=== PATIENT | female | born 2000 | race Caucasian/White ===

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

== ENCOUNTER 2019-05-28 21:41 | Emergency (ER) | payer OTHER ==
[2019-05-28] MEDS ORDERED: diPHENhydraMINE IV* 50 MG/ML 1 ml VIAL (BENADRYL) IV ONE (23:37)
[2019-05-28] MEDS ORDERED: PROCHLORPERAZINE INJ 5 MG/ML 2 ML VIAL IV ONE (23:38)
[2019-05-28] MEDS ORDERED: Ketorolac INJ* 30 MG/ML 1 ML VIAL IV PUSH ONE (23:38)
[2019-05-28] MEDS ORDERED: NS 0.9% 1000 ML** 1,000 ML IV ONE (23:38)
[2019-05-28 23:52] LABS: ABS Eosinophils 0.1 10^3/ul (0-0.6); ABS Lymphocytes 2.2 10^3/ul (1.0-4.8); ABS Monocytes 0.8 10^3/ul (0-0.8); Eosinophil % 0.8 %; Hematocrit 40 % (35-47); Hemoglobin 14.1 g/dL (12.0-16.0); Lymphocyte % 19.9 %; Mean Corpuscular HGB Conc 35 g/dL (31-36); Mean Corpuscular Hemoglobin 30 pg (27-31); Mean Corpuscular Volume 84 fL (80-97); Mean Platelet Volume 7.5 fL (7.4-10.4); Platelet Count 335 10^3/uL (150-450); Red Blood Count 4.77 10^6 /uL (3.70-4.87); Red Cell Distribution Width 13 % (10-15); White Blood Count 11.2 10^3/uL (3.5-10.8)
[2019-05-28 23:59] LABS: INR 0.93 (0.82-1.09)
--- NOTE | 2019-05-29 00:06 | ED ---
Seizure - HPI Summary HPI Summary: 18 year old female presents with headache after seizures today. She states that has history of seizure and had one this p.m. Patient has not had a seizure in a couple years. She was driving back today and had a seizure. She denies her head injury. No other injury. She took ibuprofen without relief. She states she is nauseous and photophobic. No fevers. No neck stiffness. States she gets headaches with her seizures. She hasn't missed a dose of her medication. Her neurologist is Dr. Zuniga. - History Of Current Complaint Chief Complaint: EDSeizure Time Seen by Provider: 05/28/19 23:25 - Allergies/Home Medications Allergies/Adverse Reactions: Allergies Allergy/AdvReac Type Severity Reaction Status Date / Time No Known Allergies Allergy Verified 05/28/19 23:31 PMH/Surg Hx/FS Hx/Imm Hx Endocrine/Hematology History: Denies: Hx Anticoagulant Therapy, Hx Diabetes, Hx Thyroid Disease Cardiovascular History: Denies: Hx Congestive Heart Failure, Hx Hypertension, Hx Pacemaker/ICD, Other Cardiovascular Problems/Disorders Respiratory History: Reports: Hx Asthma - A CHILD Denies: Hx Chronic Obstructive Pulmonary Disease (COPD), Hx Lung Cancer, Other Respiratory Problems/Disorders GI History: Denies: Hx Gall Bladder Disease, Hx Gastrointestinal Bleed, Hx Ulcer, Hx Urosepsis History: Denies: Hx Kidney Stones, Hx Renal Disease Sensory History: Denies: Hx Hearing Aid Neurological History: Reports: Hx Migraine, Hx Seizures Denies: Hx Dementia, Hx Transient Ischemic Attacks (TIA) Psychiatric History: Reports: Hx Depression Denies: Hx Anxiety, Hx Panic Disorder, Hx Schizophrenia, Hx Bipolar Disorder Infectious Disease History: No Infectious Disease History: Denies: Hx Hepatitis, Hx Human Immunodeficiency Virus (HIV), History Other Infectious Disease, Traveled Outside the [place] in Last 30 Days - Family History Known Family History: Positive: None, Hypertension, Other - strong FHx of gallstones and kidney stones Family History: Father with WPW, mother with thyroid and history of migraines when she was younger. - Social History Alcohol Use: None Substance Use Type: Reports: None Hx Tobacco Use: No Smoking Status (MU): Never Smoked Tobacco Review of Systems Negative: Fever Negative: Chest Pain Negative: Shortness Of Breath Neurological: Other - seizure Positive: Headache All Other Systems Reviewed And Are Negative: Yes Physical Exam Triage Information Reviewed: Yes Vital Signs On Initial Exam: Initial Vitals Temp Pulse Resp BP Pulse Ox 98.2 F 70 16 142/85 98 05/28/19 21:45 05/28/19 21:45 05/28/19 21:45 05/28/19 21:45 05/28/19 21:45 Vital Signs Reviewed: Yes Appearance: Positive: Well-Appearing Skin: Positive: Warm, Dry Head/Face: Positive: Normal Head/Face Inspection Eyes: Positive: Normal, Conjunctiva Clear ENT: Positive: Pharynx normal Respiratory/Lung Sounds: Positive: Clear to Auscultation, Breath Sounds Present Cardiovascular: Positive: Normal, RRR Abdomen Description: Positive: Nontender, Soft Bowel Sounds: Positive: Present Musculoskeletal: Positive: Normal Neurological: Positive: Sensory/Motor Intact, Alert, Oriented to Person Place, Time, CN Intact II-III Psychiatric: Positive: Normal Diagnostics - Vital Signs Vital Signs Temp Pulse Resp BP Pulse Ox 05/28/19 21:45 98.2 F 70 16 142/85 98 - Laboratory Lab Results: Lab Results 05/28/19 05/28/19 Range/Units 23:45 23:45 WBC 11.2 H (3.5-10.8) 10^3/uL RBC 4.77 (3.70-4.87) 10^6 /uL Hgb 14.1 (12.0-16.0) g/dL Hct 40 (35-47) % MCV 84 (80-97) fL MCH 30 (27-31) pg MCHC 35 (31-36) g/dL RDW 13 (10-15) % Plt Count 335 (150-450) 10^3/uL MPV 7.5 (7.4-10.4) fL Neut % (Auto) 71.9 % Lymph % (Auto) 19.9 % [place] % (Auto) 7.0 % Eos % (Auto) 0.8 % Baso % (Auto) 0.4 % Absolute Neuts (auto) 8.0 H (1.5-7.7) 10^3/ul Absolute Lymphs (auto) 2.2 (1.0-4.8) 10^3/ul Absolute Monos (auto) 0.8 (0-0.8) 10^3/ul Absolute Eos (auto) 0.1 (0-0.6) 10^3/ul Absolute Basos (auto) 0.0 (0-0.2) 10^3/ul Absolute Nucleated RBC 0.0 10^3/ul Nucleated RBC % 0.0 INR (Anticoag Therapy) 0.93 (0.82-1.09) Result Diagrams: 05/28/19 23:45 05/28/19 23:45 Lab Statement: Any lab studies that have been ordered have been reviewed, and results considered in the medical decision making process. Re-Evaluation - Re-Evaluation First Eval Comment: feeling jittery Second Eval Re-Evaluation Time: 01:24 Change: Improved Comment: feel asleep Course/Dx - Course Course Of Treatment: 18 year old female presents with headache after seizures today. She states that has history of seizure and had one this p.m. Patient has not had a seizure in a couple years. She was driving back today and had a seizure. She denies her head injury. No other injury. She took ibuprofen without relief. She states she is nauseous and photophobic. No fevers. No neck stiffness. States she gets headaches with her seizures. She hasn't missed a dose of her medication. Her neurologist is Dr. Zuniga. On exam is neurovascularly intact. Cranial nerves intact. Labs without significant abnormality. Gave Compazine Benadryl and Toradol and was feeling better but started developing twitches felt like and anxious probably due to compazine. Gave dosed Ativan and patient feel asleep. Headache is resolved. Told to follow up with neurology. Patient understands agrees plan. - Diagnoses Differential Diagnosis/HQI/PQRI: Positive: Metabolic Disorder, Known Seizure Disorder, Other - migraine Provider Diagnoses: Seizure, Headache Discharge - Sign-Out/Discharge Documenting (check all that apply): Patient Departure Patient Received Moderate/Deep Sedation with Procedure: No - Discharge Plan Condition: Good Disposition: HOME Patient Education Materials: Epilepsy (ED) Referrals: Chapo Jacobs MD [Primary Care Provider] - Jesús Zuniga MD [Medical Doctor] - Additional Instructions: take tyenlol or ibuprofen every 6 hours as needed for pain Follow up with neurology Return to ED if develop any new or worsening symptoms - Billing Disposition and Condition Condition: GOOD Disposition: Home
[2019-05-29 00:10] LABS: Albumin/Globulin Ratio 1.5 (1-3); Calcium 8.9 mg/dL (8.6-10.3); EGFR African American 147.3 (>60); EGFR Non-African American 121.7 (>60); Globulin 2.6 g/dL (2-4); Magnesium 1.9 mg/dL (1.9-2.7); Total Bilirubin 0.3 mg/dL (0.2-1.0); Total Protein 6.6 g/dL (6.4-8.9)
[2019-05-29] MEDS ORDERED: LORazepam INJ* 2 MG/ML 1 ML VIAL IV PUSH ONE (00:16)
[2019-05-29] MEDS ORDERED: Lorazepam PYXIS KEY PRN (00:16)
[2019-05-29 00:20] LABS: Carbamazepine 7.7 mcg/mL (4.0-12.0)
[2019-05-29 01:36] VITALS: BP 126/78
== END 2019-05-29 01:35 | disposition home or self-care (01) ==
LOC: ED 21:41
DX: G40.909 Epilepsy, unspecified, not intractable, without status epilepticus (principal); R51 Headache
CPT/HCPCS: 36415; 80053; 80156; 83605; 83735; 85025; 85610; 96374; 96375; 99282; J0780; J1200; J1885; J2060

== ENCOUNTER 2019-08-03 21:47 | Emergency (ER) | payer OTHER ==
--- NOTE | 2019-08-03 23:51 | ED ---
Respiratory - HPI Summary HPI Summary: 19 yo female presents to [facility] with cold symptoms. She tells me that 2 days ago she developed sinus pain/pressure/congestion with a sore throat and dry cough. Today her cough is much worse and she feels that she is wheezing. She has coughed "all day" and has a headache from coughing. She has not taken anything OTC for her symptoms. Denies fever, chills, SOB, chest pain, abdominal pain, n/v. No chance of today. Pt states hx of asthma as a child - History of Current Complaint Chief Complaint: EDUpperRespComplaint Stated Complaint: COLD PER PT Time Seen by Provider: 08/03/19 23:51 Hx Obtained From: Patient Onset/Duration: Gradual Onset Initial Severity: Mild Current Severity: Mild Pain Intensity: 4 - Allergy/Home Medications Allergies/Adverse Reactions: Allergies Allergy/AdvReac Type Severity Reaction Status Date / Time No Known Allergies Allergy Verified 08/03/19 21:52 PMH/Surg Hx/FS Hx/Imm Hx Endocrine/Hematology History: Denies: Hx Anticoagulant Therapy, Hx Diabetes, Hx Thyroid Disease Cardiovascular History: Denies: Hx Congestive Heart Failure, Hx Hypertension, Hx Pacemaker/ICD, Other Cardiovascular Problems/Disorders Respiratory History: Reports: Hx Asthma - A CHILD Denies: Hx Chronic Obstructive Pulmonary Disease (COPD), Hx Lung Cancer, Other Respiratory Problems/Disorders GI History: Denies: Hx Gall Bladder Disease, Hx Gastrointestinal Bleed, Hx Ulcer, Hx Urosepsis History: Denies: Hx Kidney Stones, Hx Renal Disease Sensory History: Denies: Hx Hearing Aid Neurological History: Reports: Hx Migraine, Hx Seizures Denies: Hx Dementia, Hx Transient Ischemic Attacks (TIA) Psychiatric History: Reports: Hx Depression Denies: Hx Anxiety, Hx Panic Disorder, Hx Schizophrenia, Hx Bipolar Disorder Infectious Disease History: No Infectious Disease History: Denies: Hx Hepatitis, Hx Human Immunodeficiency Virus (HIV), History Other Infectious Disease, Traveled Outside the [place] in Last 30 Days - Family History Known Family History: Positive: None, Hypertension, Other - strong FHx of gallstones and kidney stones Family History: Father with WPW, mother with thyroid and history of migraines when she was younger. - Social History Alcohol Use: None Substance Use Type: Reports: None Hx Tobacco Use: No Smoking Status (MU): Never Smoked Tobacco Review of Systems Constitutional: Negative Eyes: Negative Positive: Nasal Discharge Cardiovascular: Negative Positive: Cough Gastrointestinal: Negative Skin: Negative Positive: Headache Psychological: Normal All Other Systems Reviewed And Are Negative: No Physical Exam - Summary Physical Exam Summary: GENERAL: NAD. WDWN. No pain distress. SKIN: No rashes, sores, lesions, or open wounds. HEENT: Head: AT/NC Eyes: Conjunctiva clear without inflammation or discharge. Ears: Hearing grossly normal. TMs intact, no bulging, erythema, or edema. Nose: Nasal mucosa pink and moist. NTTP maxillary and frontal sinus. Throat: Posterior oropharynx without exudates, erythema, or tonsillar enlargement. Uvula midline. NECK: Supple. Nontender. No lymphadenopathy. CHEST: Mild wheezing throughout. No r/r. No accessory muscle use. Breathing comfortably and in no distress. CV: RRR. Without m/r/g. Pulses intact. Cap refill <2seconds NEURO: Alert. PSYCH: Age appropriate behavior. Triage Information Reviewed: Yes Vital Signs On Initial Exam: Initial Vitals Temp Pulse Resp BP Pulse Ox 97.2 F 95 16 118/97 97 08/03/19 21:50 08/03/19 21:50 08/03/19 21:50 08/03/19 21:50 08/03/19 21:50 Vital Signs Reviewed: Yes Diagnostics - Vital Signs Vital Signs Temp Pulse Resp BP Pulse Ox 08/03/19 21:50 97.2 F 95 16 118/97 97 - Laboratory Lab Statement: Any lab studies that have been ordered have been reviewed, and results considered in the medical decision making process. Disposition - Course Course Of Treatment: Suspect bronchitis. In the ED pt was given a duoneb treatment with good relief. She was given a first dose of zpak as well as ibuprofen. - Diagnoses Provider Diagnoses: Bronchitis Discharge ED - Sign-Out/Discharge Documenting (check all that apply): Patient Departure Patient Received Moderate/Deep Sedation with Procedure: No - Discharge Plan Condition: Stable Disposition: HOME Prescriptions: Albuterol HFA INHALER* [Ventolin HFA Inhaler*] 1 puff INH Q6H PRN #1 mdi PRN Reason: Sob/Wheezing Azithromycin TAB* [Zithromax TAB (Z-SCARLETT) 250 mg #6 tabs] 2 tab PO .TODAY, THEN 1 DAILY #1 scarlett predniSONE TAB* [Deltasone 20 MG TAB*] 40 mg PO DAILY #10 tab Patient Education Materials: Acute Bronchitis (ED) Forms: *Work Release Referrals: Chapo Jacobs MD [Primary Care Provider] - Additional Instructions: If you develop a fever, shortness of breath, chest pain, new or worsening symptoms - please call your PCP or go to the ED immediately. - Billing Disposition and Condition Condition: STABLE Disposition: Home
[2019-08-04] MEDS ORDERED: Azithromycin TAB* 250 MG PO ONE
[2019-08-04] MEDS ORDERED: Ibuprofen TAB* 600 MG PO ONE
[2019-08-04] MEDS ORDERED: Albuterol/Ipratropium NEB.SOL* Albuterol 2.5 MG/Ipratropium 0.5 MG 3 ML INH ONE (00:01)
[2019-08-04 00:42] VITALS: BP 137/72
== END 2019-08-04 00:41 | disposition home or self-care (01) ==
LOC: EDSEX → ED 21:47
DX: J40 Bronchitis, not specified as acute or chronic (principal); Z79.899 Other long term (current) drug therapy
CPT/HCPCS: 99283; A9270-GY

== ENCOUNTER 2019-08-28 20:35 | Emergency (ER) | payer OTHER ==
--- OUTSIDE RECORDS SUMMARY | 2019-08-28 21:03 | XMS REPORT | Continuity of Care Document ---
:2000 External Reference #:[id number] Author Name Homer Sherman CNM Address [address] [place] [address] Care Team Providers Name Role Phone Chapo Jacobs MD Care Team Information Banking Analyst [phone] Problems Active Problems Provider Date Vulval hyperplasia Naeem Daily M.D. 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 Allergies, Adverse Reactions, Alerts Description No Known Drug Allergies Medications Active Medications SIG Qnty Indications Ordering Provider Date Carbamazepine ER 2 tabs every am Unknown 200mg Caps ER 12HR Kyleena Unknown Carbamazepine ER 3 tabs QHS Unknown 200mg Caps ER 12HR Fluoxetine HCL 1 by mouth Unknown 20mg Capsules every day Medications Administered in Office Medication SIG Qnty Indications Ordering Provider Date PT SCRN Tbco Id as Non User Homer Sherman CNM 08/22/2019 Injection PT SCRN Tbco Id as Non User Karen Srinivasan MD 08/09/2018 Injection PT SCRN Tbco Id as Non User Karen Srinivasan MD 05/16/2018 Injection Immunizations Description No Information Available Vital Signs Date Vital Result Comment 08/22/2019 7:58am BP Systolic 118 mmHg BP Diastolic 78 mmHg Height 63.5 inches 5'3.50" Weight 219.00 lb BMI (Body Mass Index) 38.2 kg/m2 Last Menstrual Period [id number] 0 Parity 0 08/09/2018 2:44pm BP Systolic 122 mmHg BP Diastolic 66 mmHg Height 63.5 inches 5'3.50" Weight 212.00 lb BMI (Body Mass Index) 37.0 kg/m2 Last Menstrual Period [id number] 0 Results Description No Information Available Procedures Description No Information Available Medical Devices Description No Information Available Encounters Type Date Location Provider Dx Diagnosis Office Visit 08/22/2019 [facility] Homer Sherman CNM N39.0 Urinary tract 8:00a infection, site not specified T19.2xxA Foreign body in vulva and vagina, initial encounter Z11.3 Encntr screen for infections w sexl mode of transmiss Assessments Date Code Description Provider 08/22/2019 N39.0 Urinary tract infection, site not specified Homer Sherman CNM 08/22/2019 T19.2xxA Foreign body in vulva and vagina, initial Homer Sherman CNM encounter 08/22/2019 Z11.3 Encounter for screening for infections with a Homer Sherman CNM predominantly sexual mode of transmission Plan of Treatment 08/22/2019 - ALIZA HeltonMN39.0 Urinary tract infection, site not specifiedComments:We will follow up based on result and consider treatment.T19.2xxA Foreign body in vulva and vagina, initial encounterComments: This item might account for your discomfort.Z11.3 Encounter for screening for infections with a predominantly sexual mode of transmission Functional Status Description No Information Available Mental Status Description No Information Available Referrals Description No Information Available
[2019-08-28] MEDS ORDERED: Ketorolac INJ* 30 MG/ML 1 ML VIAL IM ONE (21:52)
[2019-08-28] MEDS ORDERED: Diazepam TAB(*) 5 MG PO ONE (21:52)
--- NOTE | 2019-08-28 21:53 | ED ---
Back Pain - HPI Summary HPI Summary: Patient complains of left mid back pain starting at 5pm today when she was lifting something. Pain described as constant, sharp, stabbing. Denies any other pain, injury or symptoms. Medical history is seizures. - History of Current Complaint Chief Complaint: EDBackInjuryPain Stated Complaint: BACK PAIN PER PT Time Seen by Provider: 08/28/19 21:28 Hx Obtained From: Patient Hx Last Menstrual Period: 09/22/18 Onset/Duration: Sudden Onset, Lasting Hours Onset/Duration: Started Hours Ago Timing: Constant Back Pain Location: Is Discrete @ Severity Initially: Severe Severity Currently: Severe Pain Intensity: 10 Pain Scale Used: 0-10 Numeric Character: Sharp Aggravating Symptom(s): Movement, Lifting, Bending Alleviating Symptom(s): Rest, Position Associated Signs And Symptoms: Positive: Negative - Allergies/Home Medications Allergies/Adverse Reactions: Allergies Allergy/AdvReac Type Severity Reaction Status Date / Time No Known Allergies Allergy Verified 08/28/19 20:57 PMH/Surg Hx/FS Hx/Imm Hx Endocrine/Hematology History: Denies: Hx Anticoagulant Therapy, Hx Diabetes, Hx Thyroid Disease Cardiovascular History: Denies: Hx Congestive Heart Failure, Hx Hypertension, Hx Pacemaker/ICD, Other Cardiovascular Problems/Disorders Respiratory History: Reports: Hx Asthma - A CHILD Denies: Hx Chronic Obstructive Pulmonary Disease (COPD), Hx Lung Cancer, Other Respiratory Problems/Disorders GI History: Denies: Hx Gall Bladder Disease, Hx Gastrointestinal Bleed, Hx Ulcer, Hx Urosepsis History: Denies: Hx Kidney Stones, Hx Renal Disease Sensory History: Denies: Hx Legally Blind, Hx Hearing Aid Opthamlomology History: Denies: Hx Eye Prosthesis EENT History: Denies: Hx Deafness Neurological History: Reports: Hx Migraine, Hx Seizures Denies: Hx Dementia, Hx Transient Ischemic Attacks (TIA) Psychiatric History: Reports: Hx Depression Denies: Hx Anxiety, Hx Panic Disorder, Hx Schizophrenia, Hx Bipolar Disorder Infectious Disease History: No Infectious Disease History: Denies: Hx Hepatitis, Hx Human Immunodeficiency Virus (HIV), History Other Infectious Disease, Traveled Outside the [place] in Last 30 Days - Family History Known Family History: Positive: None, Hypertension, Other - strong FHx of gallstones and kidney stones Family History: Father with WPW, mother with thyroid and history of migraines when she was younger. - Social History Alcohol Use: None Substance Use Type: Reports: Marijuana Hx Tobacco Use: No Smoking Status (MU): Never Smoked Tobacco Review of Systems Constitutional: Negative Eyes: Negative ENT: Negative Cardiovascular: Negative Respiratory: Negative Gastrointestinal: Negative Genitourinary: Negative Musculoskeletal: Other Skin: Negative Neurological: Negative Psychological: Normal All Other Systems Reviewed And Are Negative: Yes Physical Exam - Summary Physical Exam Summary: Pain with palpation of paraspinal muscles of thoracic spine on left side. No ecchymosis, erythema, deformity, swelling noted to back. PMS intact distally in left upper extremity. Triage Information Reviewed: Yes Vital Signs On Initial Exam: Initial Vitals Temp Pulse Resp BP Pulse Ox 98.5 F 72 16 141/95 97 08/28/19 20:56 08/28/19 20:56 08/28/19 20:56 08/28/19 20:56 08/28/19 20:56 Vital Signs Reviewed: Yes Appearance: Positive: Well-Appearing Skin: Positive: Warm Head/Face: Positive: Normal Head/Face Inspection Eyes: Positive: Normal Neck: Positive: Supple Respiratory/Lung Sounds: Positive: Clear to Auscultation Cardiovascular: Positive: Normal Abdomen Description: Positive: Nontender Musculoskeletal: Positive: Normal Neurological: Positive: Normal Psychiatric: Positive: Normal AVPU Assessment: Alert - Darcie Coma Scale Best Eye Response: 4 - Spontaneous Best Motor Response: 6 - Obeys Commands Best Verbal Response: 5 - Oriented Coma Scale Total: 15 Procedures - Sedation Patient Received Moderate/Deep Sedation with Procedure: No Diagnostics - Vital Signs Vital Signs Temp Pulse Resp BP Pulse Ox 08/28/19 20:56 98.5 F 72 16 141/95 97 - Laboratory Lab Statement: Any lab studies that have been ordered have been reviewed, and results considered in the medical decision making process. Back Pain Course/Dx - Course Course Of Treatment: Patient complains of left mid back pain starting at 5pm today when she was lifting something. Pain described as constant, sharp, stabbing. Denies any other pain, injury or symptoms. Medical history is seizures. Vital signs within normal limits. Labs unremarkable. Patient improved with Valium 5 mg by mouth, lidocaine patch, Toradol 30 mg IM. UA possible UTI. Cultures pending. Rx for Flexeril, and Bactrim. - Diagnoses Provider Diagnoses: Back pain, UTI (urinary tract infection) Discharge ED - Sign-Out/Discharge Documenting (check all that apply): Patient Departure - Discharge Plan Condition: Stable Disposition: HOME Prescriptions: Cyclobenzaprine TAB* [Flexeril 10 MG TAB*] 10 mg PO TID PRN 4 Days #12 tab PRN Reason: Spasms Sulfamethox/Trimethoprim DS* [Bactrim DS 800/160 TAB*] 1 tab PO BID 10 Days #20 tab Patient Education Materials: Urinary Tract Infection in Women (ED), Muscle Spasm (ED) Referrals: Chapo Jacobs MD [Primary Care Provider] - Additional Instructions: Take Bactrim twice a day for UTI. Take Flexeril as directed for back pain. Beware that flexeril can make you drowsy. Return to the ED for any new or worsening symptoms. - Billing Disposition and Condition Condition: STABLE Disposition: Home - Attestation Statements Provider Attestation: I was available for consult. This patient was seen by the [facility]. The patient was not presented to, seen by, or examined by me. Colby Austin MD
[2019-08-28] MEDS ORDERED: Lidocaine PATCH 5%* 1 PATCH TRANSDERM SCH (22:00)
[2019-08-28] MEDS ORDERED: Lidocaine PATCH 5%* 1 PATCH ONE (22:06)
[2019-08-28 23:15] VITALS: BP 124/73
[2019-08-29 00:01] LABS: Urine Appearance Cloudy; Urine Bacteria Absent (Absent); Urine Bilirubin Negative (Negative); Urine Blood 2+ (Negative); Urine Color Yellow; Urine Glucose Negative (Negative); Urine Ketones Negative (Negative); Urine Nitrite Negative (Negative); Urine Protein Negative (Negative); Urine Red Blood Cell Trace(0-2/hpf) (Absent); Urine Specific Gravity 1.025 (1.010-1.030); Urine Squamous Epithelial Cell Present (Absent); Urine Urobilinogen Negative (Negative); Urine White Blood Cell 2+(11-20/hpf) (Absent)
[2019-08-29] MEDS ORDERED: Lidocaine Patch REMOVE* 1 NOTE MISC SCH (21:00)
== END 2019-08-28 23:14 | disposition home or self-care (01) ==
LOC: EDSEX → ED 20:35
DX: M54.9 Dorsalgia, unspecified (principal); N39.0 Urinary tract infection, site not specified
CPT/HCPCS: 81003; 81015; 87086; 96372; 99282; A9270-GY; J1885

== ENCOUNTER 2020-01-10 14:40 | Emergency (ER) | payer OTHER ==
[2020-01-10 15:58] LABS: Influenza A Molecular Negative (Negative); Influenza B Molecular Negative (Negative)
--- NOTE | 2020-01-10 16:48 | UC ---
FLU HPI - HPI Summary HPI Summary: 5 DAYS OF COUGH, NASAL CONGESTION, CHILLS, LOW BACK PAIN. HAD SOME NAUSEA AND VOMITING A COUPLE OF DAYS AGO. FEELS FATIGUED. REQUESTING A WORK NOTE. - History of Current Complaint Chief Complaint: UCGeneralIllness Stated Complaint: COUGH, PREVIOUS VOMITING Time Seen by Provider: 01/10/20 16:35 Hx Obtained From: Patient Hx Last Menstrual Period: today Onset/Duration: Gradual Onset, Lasting Days, Still Present Severity Currently: Moderate Severity Initially: Moderate Pain Intensity: 6 Pain Scale Used: 0-10 Numeric Associated Signs & Symptoms: Positive: Myalgia, Cough, Nasal Congestion, Vomiting - Allergy/Home Medications Allergies/Adverse Reactions: Allergies Allergy/AdvReac Type Severity Reaction Status Date / Time No Known Allergies Allergy Verified 01/10/20 15:36 Home Medications: Home Medications carBAMazepine ER TAB(*) [Tegretol Xr TAB(*)] 400 mg PO QAM 01/01/13 [History Confirmed 01/10/20] carBAMazepine ER TAB(*) [Tegretol Xr TAB(*)] 600 mg PO BEDTIME 08/04/14 [ History Confirmed 08/03/19] Melatonin/Pyridoxine HCl (B6) [Melatonin] 1 tab PO BEDTIME 06/17/17 [History Confirmed 01/10/20] Ibuprofen TAB* [Motrin TAB* 600 MG] 600 mg PO Q8H PRN #20 tab 08/23/17 [Rx Confirmed 01/10/20] Levonorgestrel (Iud) [Kyleena IUD] 17.5 mcg IU DAILY WITH MEAL 10/17/18 [ History Confirmed 01/10/20] SUMAtriptan succinate [Imitrex] 100 mg PO DAILY WITH MEAL 10/17/18 [History Confirmed 01/10/20] Albuterol HFA INHALER* [Ventolin HFA Inhaler*] 1 puff INH Q6H PRN #1 mdi [Rx Confirmed 01/10/20] PMH/Surg Hx/FS Hx/Imm Hx Respiratory History: Asthma Other History Of: Negative For: HIV, Hepatitis B, Hepatitis C, Anticoagulant Therapy - Surgical History Surgical History: None - Family History Known Family History: Positive: Hypertension, Other - strong FHx of gallstones and kidney stones Family History: Father with WPW, mother with thyroid and history of migraines when she was younger. - Social History Alcohol Use: None Substance Use Type: Marijuana Smoking Status (MU): Never Smoked Tobacco - Immunization History Vaccination Up to Date: Yes Review of Systems All Other Systems Reviewed And Are Negative: Yes Constitutional: Positive: Chills, Fatigue ENT: Positive: Nasal Discharge Respiratory: Positive: Cough Cardiovascular: Positive: Negative Gastrointestinal: Positive: Vomiting, Nausea Genitourinary: Positive: Negative Musculoskeletal: Positive: Other: - LOW BACK PAIN Physical Exam Triage Information Reviewed: Yes Appearance: No Pain Distress, Well-Nourished, Ill-Appearing - FATIGUED Vital Signs: Initial Vital Signs Temp 97.9 F 01/10/20 15:31 Pulse 85 01/10/20 15:31 Resp 16 01/10/20 15:31 BP 135/79 01/10/20 15:31 Pulse Ox 97 01/10/20 15:31 Laboratory Tests 01/10/20 01/10/20 15:46 17:25 POC Urine Color Susanna POC Urine Clarity Cloudy POC Urine pH 6.5 POC Ur Specif Bypro >= 1.030 POC Urine Protein 1+ A POC Ur Glucose (UA) Trace A POC Urine Ketones Negative POC Urine Blood 3+ A POC Urine Nitrite Negative POC Urine Bilirubin 1+ A POC Urine Urobilinogen 1.0 POC U Leukocyte Esteras Negative Influenza A (Rapid) Negative Influenza B (Rapid) Negative Vital Signs Reviewed: Yes Eyes: Positive: Conjunctiva Clear ENT: Positive: Hearing grossly normal, Pharynx normal, TMs normal Neck: Positive: Supple, Nontender, No Lymphadenopathy Respiratory Exam: Normal Cardiovascular Exam: Normal Abdomen Description: Positive: Soft, CVA Tenderness (R). Negative: CVA Tenderness (L), Distended, Guarding Musculoskeletal: Positive: No Edema Neurological: Positive: Alert Psychological: Positive: Age Appropriate Behavior Skin: Negative: Rashes Diagnostics - Radiology CT ABD/PELVIS W/O CONTRAST Radiology Interpretation Completed By: Radiologist Summary of Radiographic Findings: No renal calculi or hydronephrosis. IUD is seen within the uterus. Probable 1.5 cm dominant follicle in the right ovary. No free fluid. Flu Course/Dx - Course Course Of Treatment: FLU NEGATIVE. CT ABDOMEN/PELVIS OBTAINED DUE TO PATIENT COMPLAINT OF RIGHT FLANK PAIN AND CVA TENDERNESS ON EXAM. NO ACUTE PATHOLOGY. PATIENTLY WITH VIRALLY MEDIATED SYMPTOMS THAT SHOULD RESOLVE ON THEIR OWN WITH TIME. REST, HYDRATE, OTC MEDS NEEDED. NO FOR WORK PROVIDED. - Differential Dx/Diagnosis Provider Diagnosis: Flu-like symptoms Discharge ED - Sign-Out/Discharge Documenting (check all that apply): Patient Departure All imaging exams completed and their final reports reviewed: Yes - Discharge Plan Condition: Stable Disposition: HOME Patient Education Materials: Viral Syndrome (ED) Forms: *Work Release Referrals: Chapo Jacobs MD [Primary Care Provider] - If Needed Additional Instructions: FLU NEGATIVE. CT SCAN ABD/PELVIS UNREMARKABLE.YOUR SYMPTOMS ARE LIKELY VIRALLY MEDIATED AND SHOULD RESOLVE ON THEIR OWN WITH TIME. NO INDICATION FOR ANTIBIOTICS AT PRESENT. REST, HYDRATE, OTC MEDS NEEDED. SEEK FOLLOW-UP IF YOU ARE NOT IMPROVING OVER THE NEXT 1-2 WEEKS. - Billing Disposition and Condition Condition: STABLE Disposition: Home
[2020-01-10 18:06] VITALS: BP 123/72
== END 2020-01-10 19:19 | disposition home or self-care (01) ==
LOC: UCEAST 14:40
DX: R05 Cough (principal); J45.909 Unspecified asthma, uncomplicated; R10.9 Unspecified abdominal pain; R53.83 Other fatigue; R09.81 Nasal congestion; R11.2 Nausea with vomiting, unspecified; M54.5 Low back pain; R68.83 Chills (without fever); Z79.899 Other long term (current) drug therapy
CPT/HCPCS: 74176; 81003; 99211; G0463